=== PATIENT | female | born 1990 | race Caucasian/White ===

== ENCOUNTER 2017-01-13 21:50 | Inpatient (IN) | payer OTHER ==
[2017-01-14] MEDS ORDERED: BUTORPHANOL TARTRATE 1 MG/ML VIAL IVPB ONE (00:05)
[2017-01-14] MEDS ORDERED: DEXTROSE 5%-LACTATED RINGERS 1,000 ML IV SCH (00:15)
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
[2017-01-14 00:21] LABS: BASOPHIL 0.4 % (0-2.0); EOSINOPHIL 1.6 % (0-4.5); MCH 27.9 pg (25.7-33.7); MCHC 32.8 g/dl (32.0-36.0); MEAN CELL VOLUME 85.3 fl (80-96); MEAN PLT VOLUME 10.5 fl (7.5-11.1); NEUTROPHILS 66.3 % (42.8-82.8); PLATELET COUNT 212 K/MM3 (134-434); RDW 14.2 % (11.6-15.6); WHITE BLOOD COUNT 10.8 K/mm3 (4.0-10.0)
[2017-01-14] MEDS ORDERED: AMPICILLIN - 2 GM in SODIUM CHLORIDE 100 ML IVPB ONE (00:29)
[2017-01-14 00:34] LABS: INR 0.93 (0.82-1.09); PROTHROMBIN TIME (PATIENT) 10.2 SEC (9.98-11.88)
[2017-01-14 00:37] LABS: ACTIVATED PTT 28.3 SECONDS (26.9-34.4)
[2017-01-14 00:45] LABS: ALK PHOS 255 U/L (45-117); ANION GAP 12 (8-16); BILIRUBIN,TOTAL 0.3 mg/dL (0.2-1.0); CALCIUM 9.1 mg/dL (8.5-10.1); CO2 23 mmol/L (21-32); COCKROFT - GAULT 0; CREATININE 0.6 mg/dL (0.55-1.02); GLUCOSE,RANDOM 90 mg/dL (74-106); SGOT/AST 16 U/L (15-37); SGPT/ALT 16 U/L (12-78); TOT PROT 6.5 g/dl (6.4-8.2)
[2017-01-14] MEDS ORDERED: BUTORPHANOL TARTRATE 1 MG/ML VIAL IVPUSH PRN (00:50)
[2017-01-14 01:14] LABS: HIV 1 & 2 AB NEGATIVE; HIV 1 AGp24 NEGATIVE
--- NOTE | 2017-01-14 03:01 | PN ---
Progress Note, Labor Vaginal Exam #1 Labor Exam Date: 01/14/17 Labor Exam Time: 02:44 Heart Rate (range): 120-140 Dilatation: antlip Effacement (%): 100 Amniotic Membrane Status: Ruptured Presentation: Vertex/Position Station: +2 Remarks: uc 2-4 min fhr cat-1 stadol 1 mg iv was given at 1.05 am Selected Entries 01/13/17 23:40 Temperature 98.2 F Pulse Rate 79 Blood Pressure 133/77 Vaginal Exam #3 Labor Exam Date: 01/14/17 Labor Exam Time: 03:20 Heart Rate (range): 120 Dilatation: 10 Effacement (%): 100 Amniotic Membrane Status: Ruptured Presentation: Vertex/Position Station: +2 (+2/+3) Remarks: uc 2-4 min fhr loss of contact seen cat-1 pt pushing
[2017-01-14] MEDS ORDERED: AMPICILLIN - 1 GM in SODIUM CHLORIDE 100 ML IVPB SCH (04:29)
--- NOTE | 2017-01-14 04:53 | PN ---
Delivery - Delivery Vaginal Delivery: No Problems (episiotomy was sutured in layers with chr catgut #2/0 . pr exam mucosa & sphincter was intact), Spontaneous Type of Anesthesia: Local Episiotomy/Laceration: Midline (episiotomy sutured in layers with Chr catgut #2/ 0) EBL (cc): 350 (bladder catheterized emptied 400 ml) Delivery, Single - Stages of Labor Date 1st Stage Initiatied: 01/13/17 Time 1st Stage Initiated: 16:00 Date 2nd Stage Initiated: 01/14/17 Time 2nd Stage Initiated: 03:20 Date of Delivery: 01/14/17 Time of Delivery: 03:55 Date Placenta Delivered: 01/14/17 Time Placenta Delivered: 04:00 Placenta: Yes: Spontaneous, Uterine Exploration - Condition of Healthcare Interpreter/Relaster Present: No Infant Gender: Female Position: Left, OA Total Hours ROM (Hrs/Mins): 1hr 16 min - 1 Minute Total Score: 9 5 Minutes Total Score: 9 - [place] Feeding Plan Initial Plan: Elected not to breastfeed exclusively throughout hospitalization Remarks - Remarks Remarks: 26 yrs 39.6/7 weeks pnc started at [facility], inadequate care (2 visits only) GBS unknown, 2 dose of IVAmpicillin for prophylaxis were given Stadol was given for labor analgesia Intrapartum course was uneventful
[2017-01-14] MEDS ORDERED: METHYLERGONOVINE MALEATE 0.2 MG/1 ML AMP IM PRN (05:01)
[2017-01-14] MEDS ORDERED: oxyCODONE HCL 5 MG TABLET PO PRN (05:01)
[2017-01-14] MEDS ORDERED: BENZOCAINE 20% 57 GM BOTTLE TP PRN (05:01)
[2017-01-14] MEDS ORDERED: BENZOCAINE 28 GM HEMORRHOIDAL OINTMENT TP PRN (05:01)
[2017-01-14] MEDS ORDERED: BISACODYL 10 MG SUPP.RECT RC PRN (05:01)
[2017-01-14] MEDS ORDERED: WITCH HAZEL 50% (TUCKS) 40 PAD/JAR PAD TP PRN (05:01)
[2017-01-14] MEDS ORDERED: D5W-LR W/ 20 UNITS OXYTOCIN 1,000 ML IV SCH (05:15)
[2017-01-14] MEDS: IBUPROFEN 600 MG TABLET (FP) PO PRN ×2 (05:30→16:34)
[2017-01-14] MEDS: ACETAMINOPHEN 325 MG TABLET (FP) PO PRN (05:30)
[2017-01-14 06:50] LABS: URINE APPEARANCE CLEAR; URINE BILIRUBIN NEGATIVE (NEGATIVE); URINE COLOR YELLOW; URINE GLUCOSE (UA) NEGATIVE (NEGATIVE); URINE KETONE NEGATIVE (NEGATIVE); URINE LEUK ESTERASE NEGATIVE (NEGATIVE); URINE NITRITE NEGATIVE (NEGATIVE); URINE PROTEIN NEGATIVE (NEGATIVE); URINE UROBILINOGEN NEGATIVE E.U./dl (0.2-1.0)
[2017-01-14 06:51] LABS: URINE BLOOD 2+ (NEGATIVE)
[2017-01-14 06:55] LABS: URINE MUCUS RARE; URINE RBC 9 /hpf (0-3); URINE WBC 1 /hpf (3-5)
[2017-01-14 07:03] LABS: URINE MARIJUANA THC NEGATIVE ng/ml (CUTOFF=50)
[2017-01-14] MEDS: FERROUS SO4 325 MG TABLET (FP) PO SCH ×2 (09:06→16:34)
[2017-01-14] MEDS: PRENATAL VITAMINS W/ FOLIC ACID TABLET (FP) PO SCH (09:06)
--- NOTE | 2017-01-15 05:51 | PN ---
Post Progress Note Post Day: 1 Type of Delivery: Vital Signs: Vital Signs Temperature 98.2 F 01/15/17 02:00 Pulse Rate 69 01/15/17 02:00 Respiratory Rate 18 01/15/17 02:00 Blood Pressure 108/60 01/15/17 02:00 O2 Sat by Pulse Oximetry (%) 97 01/14/17 05:30 Breast Exam: Yes: Soft Uterus: Yes: Fundus Firm Abdomen/GI: Yes: Abdomen soft Lochia: Yes: Rubra Lochia, amount: Small Extremities: Yes: Calves non-tender Perineum: Yes: Intact Activity: Ambulating - Labs Labs: CBC WBC 10.8 K/mm3 (4.0-10.0) H 01/14/17 00:01 RBC 4.27 M/mm3 (3.60-5.2) 01/14/17 00:01 Hgb 11.9 GM/dL (10.7-15.3) 01/14/17 00:01 Hct 36.4 % (32.4-45.2) 01/14/17 00:01 MCV 85.3 fl (80-96) 01/14/17 00:01 MCHC 32.8 g/dl (32.0-36.0) 01/14/17 00:01 RDW 14.2 % (11.6-15.6) 01/14/17 00:01 Plt Count 212 K/MM3 (134-434) 01/14/17 00:01 MPV 10.5 fl (7.5-11.1) 01/14/17 00:01 Neutrophils % 66.3 % (42.8-82.8) 01/14/17 00:01 Lymphocytes % 24.6 % (8-40) 01/14/17 00:01 Monocytes % 7.1 % (3.8-10.2) 01/14/17 00:01 Eosinophils % 1.6 % (0-4.5) 01/14/17 00:01 Basophils % 0.4 % (0-2.0) 01/14/17 00:01 Assessment/Plan check labs oob reg diet
[2017-01-15 07:14] LABS: BASOPHIL 0.4 % (0-2.0); EOSINOPHIL 2.8 % (0-4.5); MCH 28.1 pg (25.7-33.7); MCHC 32.6 g/dl (32.0-36.0); MEAN CELL VOLUME 86.3 fl (80-96); MEAN PLT VOLUME 10.2 fl (7.5-11.1); NEUTROPHILS 52.3 % (42.8-82.8); PLATELET COUNT 157 K/MM3 (134-434); RDW 14.4 % (11.6-15.6); WHITE BLOOD COUNT 12.2 K/mm3 (4.0-10.0)
[2017-01-15] MEDS: IBUPROFEN 600 MG TABLET (FP) PO PRN ×2 (07:56→21:13)
[2017-01-15] MEDS: ACETAMINOPHEN 325 MG TABLET (FP) PO PRN ×2 (07:57→21:15)
[2017-01-15] MEDS: FERROUS SO4 325 MG TABLET (FP) PO SCH ×2 (07:58→17:32)
[2017-01-15] MEDS: PRENATAL VITAMINS W/ FOLIC ACID TABLET (FP) PO SCH (09:58)
[2017-01-15] MEDS ORDERED: DIPHTH,PERTUSS(ACELL),TET 0.5 ML DISP.SYRIN IM ONE (10:00)
--- NOTE | 2017-01-15 14:28 | DS ---
Physical Exam-SUPER[employer] Vital Signs: Vital Signs Temperature 98.5 F 01/15/17 07:40 Pulse Rate 64 01/15/17 07:40 Respiratory Rate 20 01/15/17 07:40 Blood Pressure 104/65 01/15/17 07:40 O2 Sat by Pulse Oximetry (%) 97 01/14/17 05:30 Constitutional: Yes: Well Nourished Eyes: Yes: WNL HENT: Yes: WNL Neck: Yes: WNL Cardiovascular: Yes: WNL Respiratory: Yes: WNL Gastrointestinal: Yes: WNL ...Rectal Exam: Yes: WNL Renal/: Yes: WNL ....Post : Yes: Uterus firm, Uterus non-tender, Moderate lochia rubra ( perineum intact) Breast(s): Yes: WNL (breast not engorged) Musculoskeletal: Yes: WNL Extremities: Yes: WNL. No: Calf Tenderness Edema: Yes Edema: LLE: Trace, RLE: Trace Integumentary: Yes: WNL Neurological: Yes: WNL, Alert, Oriented ...Motor Strength: WNL Psychiatric: Yes: WNL, Alert, Oriented Labs: CBC, BMP 01/15/17 06:35 01/14/17 00:01 Delivery - Delivery Vaginal Delivery: No Problems (episiotomy was sutured in layers with chr catgut #2/0 . pr exam mucosa & sphincter was intact), Spontaneous Type of Anesthesia: Local Episiotomy/Laceration: Midline (episiotomy sutured in layers with Chr catgut #2/ 0) EBL (cc): 350 (bladder catheterized emptied 400 ml) Delivery, Single - Stages of Labor Date 1st Stage Initiatied: 01/13/17 Time 1st Stage Initiated: 16:00 Date 2nd Stage Initiated: 01/14/17 Time 2nd Stage Initiated: 03:20 Date of Delivery: 01/14/17 Time of Delivery: 03:55 Time Placenta Delivered: 04:00 Placenta: Yes: Spontaneous, Uterine Exploration - Condition of Infant Transition Mgr Rn/Physicist Nuclear Present: No Gender: Female Weight: 6 lb 10 oz Position: Left, OA Total Hours ROM (Hrs/Mins): 1hr 16 min - 1 Minute Total Score: 9 5 Minutes Total Score: 9 - Feeding Plan Initial Plan: Elected not to breastfeed exclusively throughout hospitalization Remarks - Remarks Remarks: 26 yrs 39.6/7 weeks pnc started at [facility], inadequate care (2 visits only) GBS unknown, 2 dose of IVAmpicillin for prophylaxis were given Stadol was given for labor analgesia Intrapartum course was uneventful . pp course uneventful. Anemia counselled discharge on 01/16/17 Discharge Summary Reason For Visit: LABOR ADMIT Current Active Problems Anemia (Acute) GBS screening not performed (Acute) History of inadequate care (Acute) Labor established (Acute) Normal spontaneous vaginal delivery (Acute) with 39 completed weeks gestation (Acute) Condition: Stable - Instructions Diet, Activity, Other Instructions: Post Instructions DIET: Continue good diet high in protein, calcium, and iron rich foods. Drink at least eight (8) glasses of water daily in addition to other fluids. ct Regular diet MEDICATIONS: Continue vitamins and iron as previously directed. Motrin and Tylenol may be taken for minor discomfort. ACTIVITY: Mild to moderate exercise may be started in two (2) weeks. Take frequent rest periods. Resume normal activity after six (6) week check up. WOUND CARE OF OPERATIVE SITE: Continue use of perineal bottle until vaginal discharge stops. Keep area clean. Shower daily. Keep abdominal wound dry. Report any drainage or redness to physician. Tub baths, tampons and douches are not permitted for [address] Breast feeding & or Bottle feeding BREAST CARE: (For those that are not breast feeding): If engorgement occurs: Wear tight fitting bra. Take Tylenol or Motrin for pain. Apply cold packs (ice in bags to each breast ) FAMILY PLANNING: There are many control alternatives to pursue and they should be discussed at your first office visit. You may resume sexual activity after your six (6) week check up. (Remember, breast feeding is not a contraceptive) NEXT PHYSICIAN APPOINTMENT: Be certain to call for a six (6) week appointment, unless otherwise directed. [facility] call for appt Call Clinic or got to Emergency Dept if you have any of the following: Heavy vaginal bleeding Painful urination Leg pain Unusual odor noted to vaginal bleeding High fever Red streaking noted on breast Referrals: Daniela Gallegos MD [Staff Physician] - Disposition: HOME - Home Medications Comprehensive Discharge Medication List: Ambulatory Orders Vit Calc,Iron,Folic [ Vitamins] 1 each PO DAILY 01/13/17 Acetaminophen [Tylenol .Regular Strength -] 650 mg PO Q3H PRN #0 tablet Benzocaine [Americaine 20% Carey -] 1 spray TP PRN PRN #0 bottle 01/15/17 Ferrous Sulfate [Feosol] 325 mg PO BIDWM #60 tab 01/15/17 Ibuprofen [Motrin -] 200 mg PO Q4H PRN #0 tablet 01/15/17 Vitamins (Sjr) - 1 tab PO DAILY #30 tablet 01/15/17 Witch Nini 50% (Tucks) [Tucks Pads -] 1 pad TP PRN PRN #0 pad 01/15/17
[2017-01-15] MEDS ORDERED: SENNOSIDES/DOCUSATE COMBO (SENNA PLUS) TABLET (UD) PO PRN (22:00)
--- NOTE | 2017-01-16 07:20 | PN ---
Progress Note (short form) - Note Progress Note: ppd 2 doing well, no c/o CBC, BMP 01/15/17 06:35 01/14/17 00:01 Last Vital Signs Temp Pulse Resp BP Pulse Ox 97.9 F 73 18 119/53 97 01/15/17 22:00 01/15/17 22:00 01/15/17 22:00 01/15/17 22:00 01/14/17 05:30 uterus firm, non tender lochia mild no calf tenderness plan d/c home, rtc 4 weeks
[2017-01-16] MEDS: FERROUS SO4 325 MG TABLET (FP) PO SCH (08:44)
[2017-01-16] MEDS: PRENATAL VITAMINS W/ FOLIC ACID TABLET (FP) PO SCH (10:00)
[2017-01-16 15:11] VITALS: BP 119/70; PULSE 65; TEMP 97.6
== END 2017-01-16 13:50 | disposition home or self-care (01) | DRG 560 ==
LOC: JDEL 21:50 → JLDR 23:20 → J3W 01-14 07:48
PROVIDERS: ADMIT Obstetrics & Gynecology; ATTEND Obstetrics & Gynecology
PROC: 10E0XZZ Delivery of Products of Conception, External Approach (ICD-10-PCS; principal; 2017-01-14)
PROC: 0W8NXZZ Division of Female Perineum, External Approach (ICD-10-PCS; 2017-01-14)
DX: O99.02 Anemia complicating childbirth (principal); Z3A.39 39 weeks gestation of pregnancy; Z37.0 Single live birth
CPT/HCPCS: 36415; 59025; 59409; 80053; 80307; 81003; 81015; 85025; 85610; 85730; 86593; 86762; 86850; 86900; 86901; 87340; 87389; 90715

== ENCOUNTER 2021-08-15 15:08 | Emergency (ER) | payer OTHER ==
[2021-08-15 15:29] VITALS: TEMP 98.6; BMI 31.8
[2021-08-15] MEDS ORDERED: ACETAMINOPHEN 1000 MG/100 ML VIAL IVPB ONE (16:42)
[2021-08-15] MEDS ORDERED: SODIUM CHLORIDE 1,000 ML IV STA (16:42)
[2021-08-15] MEDS ORDERED: ONDANSETRON 4 MG/2 ML VIAL IVPUSH ONE (16:42)
[2021-08-15] MEDS ORDERED: ACETAMINOPHEN INJECTION 100 ML IVPB ONE (18:19)
[2021-08-15] MEDS ORDERED: ONDANSETRON 4 MG/2 ML VIAL ONE (18:19)
[2021-08-15 18:37] LABS: BASO % 0.2 % (0-2.0); EOS % 8.4 % (0-4.5); HEMATOCRIT 40.9 % (32.4-45.2); HEMOGLOBIN 13.8 GM/dL (10.7-15.3); LYMPH % 16.7 % (8-40); MCH 29.8 pg (25.7-33.7); MCHC 33.8 g/dl (32.0-36.0); MEAN PLT VOLUME 8.9 fl (7.5-11.1); MONO % 9.8 % (3.8-10.2); NEUT % 64.9 % (42.8-82.8); PLATELET COUNT 260 10^3/uL (134-434); RBC 4.65 M/mm3 (3.60-5.2); RDW 13.5 % (11.6-15.6); WHITE BLOOD COUNT 10.4 K/mm3 (4.0-10.0)
[2021-08-15 18:44] LABS: EPI CELLS >36 /uL (0-25.1); HCG,QUALITATIVE URINE Positive; HYALINE CASTS 43 /uL (0-3.1); URINE APPEARANCE TURBID; URINE BACTERIA >9,000 /uL (0-1359); URINE BILIRUBIN NEGATIVE (NEGATIVE); URINE COLOR YELLOW; URINE GLUCOSE (UA) NEGATIVE (NEGATIVE); URINE KETONE 1+ (NEGATIVE); URINE LEUK ESTERASE 1+ (NEGATIVE); URINE NITRITE NEGATIVE (NEGATIVE); URINE PROTEIN 1+ (NEGATIVE); URINE WBC 454 /uL (0-25.8)
[2021-08-15 18:46] LABS: INR 1.11 (0.83-1.09)
[2021-08-15 18:59] LABS: ALBUMIN 3.3 g/dl (3.4-5.0); BLOOD UREA NITROGEN 5.4 mg/dL (7-18); CALCIUM 9.2 mg/dL (8.5-10.1)
[2021-08-15 19:02] LABS: CREATININE 0.6 mg/dL (0.55-1.3)
[2021-08-15 19:04] LABS: BILIRUBIN,TOTAL 0.3 mg/dL (0.2-1); TOT PROT 7.2 g/dl (6.4-8.2)
[2021-08-15 19:09] LABS: URINE RBC 130.6 /uL (0-23.9)
[2021-08-15] MEDS ORDERED: CEFTRIAXONE 1 GM/50 ML BAG ONE (20:39)
[2021-08-15 21:38] VITALS: BP 120/70; PULSE 82
== END 2021-08-15 21:38 | disposition home or self-care (01) ==
LOC: JER 15:08
PROC: 3E033NZ Introduction of Analgesics, Hypnotics, Sedatives into Peripheral Vein, Percutaneous Approach (ICD-10-PCS; principal; 2021-08-15)
PROC: 3E033GC Introduction of Other Therapeutic Substance into Peripheral Vein, Percutaneous Approach (ICD-10-PCS; 2021-08-15)
PROC: 3E0337Z Introduction of Electrolytic and Water Balance Substance into Peripheral Vein, Percutaneous Approach (ICD-10-PCS; 2021-08-15)
PROC: 3E03329 Introduction of Other Anti-infective into Peripheral Vein, Percutaneous Approach (ICD-10-PCS; 2021-08-15)
DX: N30.00 Acute cystitis without hematuria (principal); Z3A.08 8 weeks gestation of pregnancy
CPT/HCPCS: 36415; 76705-TC; 76817-TC; 80053; 81003; 83690; 84702; 84703; 85025; 85610; 87086; 87804; 99285-25; C9803; J0131; U0003; U0005

== ENCOUNTER 2022-02-06 12:28 | Inpatient (IN) | payer OTHER ==
[2022-02-06] MEDS: DEXTROSE 5%-LACTATED RINGERS 1,000 ML IV SCH ×2 (13:30→21:30)
[2022-02-06 13:51] VITALS: BMI 30.9
[2022-02-06 13:54] LABS: BASO % 0.6 % (0-2.0); EOS % 13.7 % (0-4.5); HEMATOCRIT 38.5 % (32.4-45.2); HEMOGLOBIN 12.7 GM/dL (10.7-15.3); LYMPH % 23.9 % (8-40); MCH 28.6 pg (25.7-33.7); MCHC 33.1 g/dl (32.0-36.0); MEAN CELL VOLUME 86.3 fl (80-96); MEAN PLT VOLUME 10.3 fl (7.5-11.1); MONO % 7.3 % (3.8-10.2); NEUT % 54.5 % (42.8-82.8); PLATELET COUNT 238 10^3/uL (134-434); RBC 4.46 M/mm3 (3.60-5.2); RDW 13.5 % (11.6-15.6); WHITE BLOOD COUNT 10.2 K/mm3 (4.0-10.0)
[2022-02-06 13:58] LABS: CALCIUM 9.1 mg/dL (8.5-10.1)
[2022-02-06 14:00] LABS: BLOOD UREA NITROGEN 3.9 mg/dL (7-18)
[2022-02-06 14:02] LABS: CREATININE 0.6 mg/dL (0.55-1.3)
[2022-02-06 14:04] LABS: INR 0.97 (0.83-1.09); PROTHROMBIN TIME (PATIENT) 11.2 SEC (9.7-13.0)
[2022-02-06 14:06] LABS: ACTIVATED PTT 26.1 SECONDS (25.2-36.5)
[2022-02-06] MEDS ORDERED: BETAMET ACET/BETAMET NA PH 30 MG/5 ML VIAL ONE (14:24)
[2022-02-06 14:26] LABS: SYPHILIS W/ RPR CONF NON-REACTIVE (NONREACTIVE)
[2022-02-06] MEDS ORDERED: BETAMET ACET/BETAMET NA PH 30 MG/5 ML VIAL IM ONE (14:30)
[2022-02-07] MEDS ORDERED: BETAMET ACET/BETAMET NA PH 30 MG/5 ML VIAL IM ONE (02:30)
[2022-02-07] MEDS: DEXTROSE 5%-LACTATED RINGERS 1,000 ML IV SCH (05:00)
[2022-02-07 15:33] LABS: HIV INTERPRETATION NEGATIVE (NEGATIVE)
[2022-02-07 18:30] VITALS: TEMP 98.1
[2022-02-07 21:22] VITALS: BP 110/63; PULSE 76
== END 2022-02-07 19:38 | disposition short-term general hospital (02) | DRG 560 ==
LOC: JLDR 12:28
PROVIDERS: ADMIT Obstetrics & Gynecology; ATTEND Obstetrics & Gynecology
DX: O69.4XX0 Labor and delivery complicated by vasa previa, not applicable or unspecified (principal); O34.33 Maternal care for cervical incompetence, third trimester; O33.3XX0 Maternal care for disproportion due to outlet contraction of pelvis, not applicable or unspecified; Z3A.33 33 weeks gestation of pregnancy
CPT/HCPCS: 36415; 80048; 85025; 85610; 85730; 86780; 86850; 86900; 86901; 86922; 87389; 96372; C9803-CS; U0003; U0005

== ENCOUNTER 2023-07-20 15:57 | Emergency (ER) | payer OTHER ==
[2023-07-20 16:11] VITALS: BP 123/81; PULSE 84; RESP 16; TEMP 98; BMI 32.3
[2023-07-20] MEDS ORDERED: SODIUM CHLORIDE 0.9% 500 ML INFUS.BAG IV ONE (16:20)
[2023-07-20] MEDS ORDERED: ACETAMINOPHEN 1000 MG/100 ML BAG IVPB ONE (16:20)
[2023-07-20] MEDS ORDERED: ACETAMINOPHEN INJECTION 100 ML IVPB ONE (17:31)
[2023-07-20 17:43] LABS: EPI CELLS >36 /uL (0-25.1); HYALINE CASTS 2 /uL (0-3.1); URINE APPEARANCE Error; URINE BACTERIA 3065 /uL (0-1359); URINE BILIRUBIN NEGATIVE (NEGATIVE); URINE COLOR YELLOW; URINE GLUCOSE (UA) NEGATIVE (NEGATIVE); URINE KETONE NEGATIVE (NEGATIVE); URINE LEUK ESTERASE 1+ (NEGATIVE); URINE NITRITE NEGATIVE (NEGATIVE); URINE PROTEIN NEGATIVE (NEGATIVE); URINE WBC 57 /uL (0-25.8)
[2023-07-20 17:44] LABS: BASO % 0.4 % (0-2.0); EOS % 11.4 % (0-4.5); HEMATOCRIT 44.8 % (32.4-45.2); HEMOGLOBIN 14.9 GM/dL (10.7-15.3); LYMPH % 34.6 % (8-40); MCH 29.2 pg (25.7-33.7); MCHC 33.3 g/dl (32.0-36.0); MEAN CELL VOLUME 87.8 fl (80-96); MEAN PLT VOLUME 9.7 fl (7.5-11.1); MONO % 5.5 % (3.8-10.2); NEUT % 48.1 % (42.8-82.8); PLATELET COUNT 250 10^3/uL (134-434); RDW 13.4 % (11.6-15.6); WHITE BLOOD COUNT 7.5 K/mm3 (4.0-10.0)
[2023-07-20 18:00] LABS: POTASSIUM 4.1 mmol/L (3.5-5.1)
[2023-07-20 18:01] LABS: CALCIUM 9.1 mg/dL (8.5-10.1)
[2023-07-20 18:05] LABS: CREATININE 0.8 mg/dL (0.55-1.3)
[2023-07-20 18:07] LABS: BILIRUBIN,TOTAL 0.4 mg/dL (0.2-1); TOT PROT 7.4 g/dl (6.4-8.2)
[2023-07-20] MEDS ORDERED: CEPHALEXIN MONOHYDRATE 500 MG CAPSULE (UD) PO ONE (18:17)
[2023-07-20] MEDS ORDERED: KETOROLAC TROMETHAMINE 30 MG/1 ML VIAL IVPUSH ONE (18:17)
[2023-07-20] MEDS ORDERED: METOCLOPRAMIDE HCL INJECTION 10 MG/2 ML VIAL IVPUSH ONE (18:17)
[2023-07-20] MEDS ORDERED: CEPHALEXIN MONOHYDRATE 500 MG CAPSULE (UD) ONE (18:38)
[2023-07-20] MEDS ORDERED: KETOROLAC TROMETHAMINE 30 MG/1 ML VIAL ONE (18:38)
[2023-07-20] MEDS ORDERED: METOCLOPRAMIDE HCL INJECTION 10 MG/2 ML VIAL ONE (18:38)
[2023-07-20 19:29] LABS: URINE RBC 69.2 /uL (0-23.9)
[2023-07-20 19:30] LABS: URINE CRYSTALS MANY /hpf
== END 2023-07-20 20:25 | disposition home or self-care (01) ==
LOC: JER 15:57
PROC: 3E033NZ Introduction of Analgesics, Hypnotics, Sedatives into Peripheral Vein, Percutaneous Approach (ICD-10-PCS; principal; 2023-07-20)
PROC: 3E0333Z Introduction of Anti-inflammatory into Peripheral Vein, Percutaneous Approach (ICD-10-PCS; 2023-07-20)
PROC: 3E033GC Introduction of Other Therapeutic Substance into Peripheral Vein, Percutaneous Approach (ICD-10-PCS; 2023-07-20)
DX: G43.909 Migraine, unspecified, not intractable, without status migrainosus (principal); N30.01 Acute cystitis with hematuria; R42 Dizziness and giddiness; R11.2 Nausea with vomiting, unspecified; Z20.822 Contact with and (suspected) exposure to COVID-19
CPT/HCPCS: 0241U-QW; 36415; 80053; 81003; 84703; 85025; 87086; 93005; 93010; 99284-25